=== PATIENT | female | born 1940 | race Caucasian/White ===

== ENCOUNTER 2024-05-10 08:07 | Observation (INO) | payer MEDICARE, OTHER ==
[2024-05-10] MEDS ORDERED: TRANEXAMIC 1,000 MG/100ML-NACL 1,000 MG/100 ML PIGGYBACK IV ONE (08:13)
[2024-05-10] MEDS ORDERED: TYLENOL EXTRA STRENGTH 500 MG ONE (08:14)
[2024-05-10] MEDS ORDERED: Lactated Ringers 1,000 ML IV ONE (08:14)
[2024-05-10] MEDS ORDERED: Decadron 4 MG ONE (08:14)
[2024-05-10] MEDS ORDERED: CEFAZOLIN 2 GM/100 ML NaCl 2 GM/100 ML IVPB IV ONE (08:14)
[2024-05-10] MEDS ORDERED: celeBREX 100 MG ONE (08:14)
[2024-05-10] MEDS ORDERED: NEURONTIN ONE (08:14)
[2024-05-10] MEDS ORDERED: Pepcid 20 MG VIAL IV ONE (08:14)
[2024-05-10] MEDS: Decadron 4 MG PO ONE (08:16)
[2024-05-10] MEDS: Pepcid 20 MG VIAL IV ONE (08:17)
[2024-05-10] MEDS: CEFAZOLIN 2 GM/100 ML NaCl 2 GM/100 ML IVPB IV SCH (08:17)
[2024-05-10] MEDS: NEURONTIN PO ONE (08:17)
[2024-05-10] MEDS: Lactated Ringers 1,000 ML IV SCH (08:17)
[2024-05-10] MEDS: celeBREX 100 MG PO ONE (08:17)
[2024-05-10] MEDS: TYLENOL EXTRA STRENGTH 500 MG PO ONE (08:18)
[2024-05-10] MEDS: TRANEXAMIC 1,000 MG/100ML-NACL 1,000 MG/100 ML PIGGYBACK IV ONE (08:18)
[2024-05-10 09:41] LABS: Absolute Neutrophil Ct (ANC) 4.78 x10^3/uL (1.56-6.13); BASOPHIL % 0.5 % (0.1-1.2); Basophil (Absolute #) 0.03 x10^3/uL (0.01-0.08); Eosinophil % 0.9 % (0.7-5.8); Eosinophil (Absolute #) 0.06 x10^3/uL (0.04-0.36); Hematocrit 46.3 % (34.1-44.9); Hemoglobin 15.4 g/dL (11.2-15.7); IMMATURE GRAN # 0.01 x10^3u/L (0.001-0.031); IMMATURE GRAN % 0.2 % (0.001-0.429); Lymphocyte (Absolute #) 1.05 x10^3/uL (1.18-3.74); Lymphocytes % 16.5 % (19.3-51.7); Mean Cell Volume 80.2 fL (79.4-94.8); Mean Corpuscular Hemoglobin 26.7 pg (25.6-32.2); Mean Corpuscular Hgb Concent. 33.3 g/dL (32.2-35.5); Mean Platelet Volume 9.8 fL (9.4-12.3); Monocyte (Absolute #) 0.45 x10^3/uL (0.24-0.86); Monocytes % 7.1 % (4.7-12.5); Neutrophil % 74.8 % (34.0-71.1); Platelet Count 258 x10^3/uL (182-369); Red Blood Count 5.77 x10^6/uL (3.93-5.22); Red Cell Distribution Width 14.3 % (11.7-14.4); White Blood Count 6.4 x10^3/uL (3.98-10.04)
[2024-05-10] MEDS: Zofran 4 MG/2 ML VIAL IV STA (09:54)
[2024-05-10 10:07] LABS: Slide Review 1 YES
[2024-05-10 10:38] LABS: ALBUMIN 4.7 g/dL (3.5-5.0); BILIRUBIN,TOTAL 0.5 mg/dL (0.2-1.3); Calcium 9.8 mg/dL (8.4-10.2); Creatinine 1 0.73 mg/dL (0.52-1.04); EST GLOMERULAR FILTRATION RATE 80.5 ML/MIN; Potassium 3.6 mmol/L (3.5-5.1); Total Protein 7.4 g/dL (6.3-8.2)
[2024-05-10] MEDS ORDERED: Xylocaine-Mpf 2% 5 Ml Vial ONE (10:51)
[2024-05-10] MEDS ORDERED: SUBLIMAZE 100 MCG/2 ML ONE (10:51)
[2024-05-10] MEDS ORDERED: Versed 2 MG/2 ML Injection ONE (10:52)
[2024-05-10] MEDS ORDERED: EXPAREL 133 MG/10 ML VIAL IJ ONE ×2 (10:53→10:54)
[2024-05-10] MEDS ORDERED: Marcaine Mpf 0.5% Vial 30 Ml ONE (10:55)
[2024-05-10] MEDS ORDERED: Zofran 4 MG/2 ML VIAL ONE ×2 (11:26→15:31)
[2024-05-10] MEDS ORDERED: ROCURONIUM BROMIDE IV ONE (11:26)
[2024-05-10] MEDS ORDERED: Amidate 20 MG/10 ML IV ONE (11:26)
[2024-05-10] MEDS ORDERED: BRIDION 200MG/2ML IV ONE (11:26)
[2024-05-10] MEDS ORDERED: TORAdol 30 mg Injection ONE (11:26)
[2024-05-10] MEDS ORDERED: propofoL IV ONE (11:26)
[2024-05-10] MEDS ORDERED: PHENYLEPHRINE HCL ONE (11:52)
--- NOTE | 2024-05-10 14:41 | XRAY ---
Indication: Right ankle arthroplasty. Fibular osteotomy. Lateral ankle stabilization. Intraoperative fluoroscopy provided for 3 minutes and 37 seconds. 33 digital spot images submitted for interpretation ultimately demonstrates talotibial arthroplasty with intact prosthesis and osteotomy distal shaft fibula with lateral fixation plate/transverse screws. Correlate with intraoperative findings/report.
--- NOTE | 2024-05-10 15:13 | XRAY ---
Three minutes and 37 seconds of fluoroscopy was used in surgery for a right ankle arthroplasty. Fibular osteotomy. Lateral ankle stabilization.
[2024-05-10] MEDS ORDERED: Nizoral CREAM TOP PRN (16:25)
[2024-05-10] MEDS ORDERED: NON-FORMULARY ITEM (Atogepant [Qulipta] 60 MG Tablet) PO PRN (16:25)
[2024-05-10] MEDS ORDERED: MEDICATION INTERVENTION MC SCH ×3 (16:45)
--- NOTE | 2024-05-10 16:48 | PCM.HP ---
History of Present Illness - Chief Complaint Chief Complaint: toe amputation Date: 05/10/24 History of Present Illness: is a 84 year old female with pmhx of HTN, GERD, Sleep apnea, Fibromyalgia, OA, fatty liver, and chronic obesity. She had surgery today in OR with podiatry Dr. Kelly for right ankle arthroplasty. The plan is to continue Ancef and pain control. She will then d/c to [facility] when ready. She explained she was prescribed Percocet 10mg Q6 PRN for pain and she does not feel she can take this as it will will cause her to itch and have GI upset. She does take Tramadol at home and she has no side effects with this. She is ok with incr easing the dose to 100mg Q6 PRN for pain and trying that. RLE wrapped post op. She c/o calf pain post op but unable to assess d/t it being wrapped. Will start pain meds and see if his helps. She denies any further concerns at this time. - Review of Systems Constitutional: No Fever, No Chills Eyes: No Symptoms Ears, Nose, & Throat: No Symptoms Respiratory: No Cough, No Short Of Breath Cardiac: No Chest Pain, No Edema, No Syncope Abdominal/Gastrointestinal: No Abdominal Pain, No Nausea, No Vomiting, No Diarrhea Genitourinary Symptoms: No Dysuria Musculoskeletal: No Back Pain, No Neck Pain Skin: Other (RLE wrapped, c/o right calf pain), No Rash Neurological: No Dizziness, No Focal Weakness, No Sensory Changes Psychological: No Symptoms Endocrine: No Symptoms Hematologic/Lymphatic: No Symptoms Immunological/Allergic: No Symptoms Medications & Allergies Home Medications: Home Medication List Albuterol Sulfate [Albuterol Sulfate Hfa] 108 mg IH DAILY PRN 05/10/24 [History Confirmed 05/10/24] Amlodipine Besylate 10 mg PO DAILY 05/10/24 [History Confirmed 05/10/24] Aspirin EC 325 mg [Ecotrin 325 MG] 325 mg PO DAILY 05/10/24 [History Confirmed 05/10/24] Atogepant [Qulipta] 60 mg PO DAILY PRN 05/10/24 [History Confirmed 05/10/24] Zaki Oil/Levomenthol [Fdgard Capsule] 1 each PO TID 05/10/24 [History Confirmed 05/10/24] Cetirizine HCl [All Day Allergy Relief] 10 mg PO DAILY 05/10/24 [History Confirmed 05/10/24] Cholecalciferol (Vitamin D3) [D3 Dots] 1,000 unit PO DAILY 05/10/24 [History Confirmed 05/10/24] Famotidine 20 mg PO DAILY 05/10/24 [History Confirmed 05/10/24] Fluticasone Propionate 50 mcg IH DAILY 05/10/24 [History Confirmed 05/10/24] Ketoconazole Cream [Nizoral CREAM] 1 applic TOP DAILY PRN 05/10/24 [History Confirmed 05/10/24] Losartan Potassium 100 mg PO DAILY 05/10/24 [History Confirmed 05/10/24] Magnesium 200 mg PO DAILY 05/10/24 [History Confirmed 05/10/24] Montelukast Sodium 10 mg [Singulair 10 MG] 10 mg PO DAILY 05/10/24 [History Confirmed 05/10/24] Omeprazole 40 mg PO DAILY 05/10/24 [History Confirmed 05/10/24] Phytonadione (Vit K1) [Vitamin K] 100 mcg PO DAILY 05/10/24 [History Confirmed 05/10/24] Potassium Chloride Tab* [Klor Con] 20 meq PO BID 05/10/24 [History Confirmed 05/10/24] Tramadol HCl 50 mg [Ultram 50 mg] 50 mg PO Q6H PRN 05/10/24 [History Confirmed 05/10/24] Vitamin B Complex [B Complex] 1 each PO DAILY 05/10/24 [History Confirmed 05/10/24] hydroCHLOROthiazide [Hydrochlorothiazide] 50 mg PO DAILY 05/10/24 [History Confirmed 05/10/24] Allergies/Adverse Reactions: Allergies Allergy/AdvReac Type Severity Reaction Status Date / Time latex Allergy Verified 05/10/24 08:31 codeine AdvReac Unknown Itching Verified 05/10/24 08:10 - Past Medical History Neurological History: No Pertinent History Cardiac History: Hypertension Respiratory History: Sleep Apnea Endocrine Medical History: Other Musculoskelatal History: Fibromyalgia, Osteoarthritis GI Medical History: GERD Comment: PAIN IN THE FEET, B KNEES REPLACED, L MARY, L SHOULDER REPLACED USING REVERSE TECHNIQUE. CYSTS ON HER KIDNEYS, FATTY LIVER. COVID+ IN 11/2021. - Past Surgical History Past Surgical History: Yes Neuro Surgical History: No Pertinent History Musculskeletal Surgical Hx: Joint Replacement, Orthopedic Surgery Other Surgical History: left hip reploacement and bilat knee replacement - Social History Smoking Status: Never smoker Alcohol: None - Physical Exam Vital Signs: Vital Signs - 24 hr Temp Pulse Resp BP Pulse Ox 05/10/24 16:35 94 L 05/10/24 08:32 97.8 F 91 H 18 135/73 95 05/10/24 08:24 97.8 F 91 H 18 135/73 95 General Appearance: no apparent distress, alert Neurologic Exam: alert, oriented x 3, cooperative, normal mood/affect, nml cerebellar function, nml station & gait, sensation nml, No motor deficits Eye Exam: PERRL/EOMI, eyes nml inspection Ears, Nose, Throat Exam: normal ENT inspection, TMs normal, pharynx normal, moist mucous membranes Neck Exam: normal inspection, non-tender, supple, full range of motion Respiratory Exam: normal breath sounds, lungs clear, No respiratory distress Cardiovascular Exam: regular rate/rhythm, normal heart sounds, normal peripheral pulses Gastrointestinal/Abdomen Exam: soft, normal bowel sounds, No tenderness, No mass Back Exam: normal inspection, normal range of motion, No CVA tenderness, No vertebral tenderness Extremity Exam: normal inspection, normal range of motion, pelvis stable, other (RLE wrapped) Skin Exam: normal color, warm, dry, No rash Lymphatic Exam: No adenopathy Results - Labs Lab/Micro Results: Lab Results-Last 24 Hours 05/10/24 05/10/24 Range/Units 09:38 09:38 WBC 6.4 (3.98-10.04) x10^3/uL RBC 5.77 H (3.93-5.22) x10^6/uL Hgb 15.4 (11.2-15.7) g/dL Hct 46.3 H (34.1-44.9) % MCV 80.2 (79.4-94.8) fL MCH 26.7 (25.6-32.2) pg MCHC 33.3 (32.2-35.5) g/dL RDW 14.3 (11.7-14.4) % Plt Count 258 (182-369) x10^3/uL MPV 9.8 (9.4-12.3) fL Gran % 74.8 H (34.0-71.1) % Immature Gran % (Auto) 0.2 (0.001-0.429) % Nucleat RBC Rel Count 0.0 (0.00-0.2) % Eos # (Auto) 0.06 (0.04-0.36) x10^3/uL Immature Gran # (Auto) 0.01 (0.001-0.031) x10^3u/L Absolute Lymphs (auto) 1.05 L (1.18-3.74) x10^3/uL Absolute Monos (auto) 0.45 (0.24-0.86) x10^3/uL Absolute Nucleated RBC 0.00 (0.00-0.012) x10^3u/L Lymphocytes % 16.5 L (19.3-51.7) % Monocytes % 7.1 (4.7-12.5) % Eosinophils % 0.9 (0.7-5.8) % Basophils % 0.5 (0.1-1.2) % Absolute Granulocytes 4.78 (1.56-6.13) x10^3/uL Basophils # 0.03 (0.01-0.08) x10^3/uL Sodium 139 (135-145) mmol/L Potassium 3.6 (3.5-5.1) mmol/L Chloride 99 (98-107) mmol/L Carbon Dioxide 34 H (22-30) mmol/L Anion Gap 10.0 (5-15) MEQ/L BUN 25 H (7-17) mg/dL Creatinine 0.73 (0.52-1.04) mg/dL Estimated GFR 80.5 ML/MIN Glucose 123 H (74-106) mg/dL Calcium 9.8 (8.4-10.2) mg/dL Total Bilirubin 0.50 (0.2-1.3) mg/dL AST 36 (14-36) U/L ALT 33 (0-35) U/L Alkaline Phosphatase 111 (38-126) U/L Serum Total Protein 7.4 (6.3-8.2) g/dL Albumin 4.7 (3.5-5.0) g/dL Slides for Path Review YES - Radiology Impressions Radiology Exams & Impressions: Radiology Procedures Category Date Time Status ANKLE (3 VIEWS) Routine Exams 05/10/24 06:47 Completed FLUOROSCOPY UP TO 1 HR Routine Exams 05/10/24 06:47 Completed - Other Procedures and Tests Respiratory Therapy 05/10/24 16:35 Oxygen Nasal Cannula 3 lpm Assessment/Plan (1) History of arthroplasty of right ankle Current Visit: Yes Status: Acute Assessment & Plan: - POD #1 - RLE wrapped - Dr. Kelly- podiatry - consult/ direct admit - Iv antibiotics - Oral pain control Code(s): Z96.661 - PRESENCE OF RIGHT ARTIFICIAL ANKLE JOINT (2) HTN (hypertension) Current Visit: Yes Status: Chronic Assessment & Plan: - continue home meds - monitor Code(s): I10 - ESSENTIAL (PRIMARY) HYPERTENSION (3) Obesity (BMI 30-39.9) Current Visit: Yes Status: Chronic Assessment & Plan: - advised diet and exercise control Code(s): E66.9 - OBESITY, UNSPECIFIED (4) GERD (gastroesophageal reflux disease) Current Visit: Yes Status: Chronic Assessment & Plan: - protonix Code(s): K21.9 - GASTRO-ESOPHAGEAL REFLUX DISEASE WITHOUT ESOPHAGITIS (5) Sleep apnea Current Visit: Yes Status: Chronic Qualifiers: Primary sleep apnea of type: obstructive Assessment & Plan: - Cpap at [facility]- RT set up VTE: SCD LLE PPI: Protonix [facility]: [facility] [phone] D/C plan: 1-2 days Code status:SCO Code(s): G47.30 - SLEEP APNEA, UNSPECIFIED
[2024-05-10] MEDS: VITAMIN D PO SCH (19:13)
[2024-05-10] MEDS: Protonix 40MG Tablet PO SCH (19:14)
[2024-05-10] MEDS: Ecotrin 325 MG PO SCH (19:14)
[2024-05-10] MEDS: VITA-BEE WITH C PO SCH (19:14)
[2024-05-10] MEDS: NORVASC 5 MG PO SCH (19:14)
[2024-05-10] MEDS: Cozaar 50 MG PO SCH (19:14)
[2024-05-10] MEDS: Singulair 10 MG PO SCH (19:14)
[2024-05-10] MEDS: CLARITIN 10 MG PO SCH (19:14)
[2024-05-10] MEDS: MAG-OX 400 PO SCH (19:15)
[2024-05-10] MEDS ORDERED: [UNRECOGNIZED DRUG - OTHER] PO SCH (22:00)
[2024-05-10] MEDS: Klor Con PO SCH (22:17)
[2024-05-10] MEDS: CEFAZOLIN 1 GM/100 ML NACL IVPB 1 GM/100 ML IVPB IV SCH (22:18)
[2024-05-11] MEDS: VENTOLIN COMMON CANISTER IH PRN ×2 (00:02→12:56)
[2024-05-11 05:41] LABS: Hematocrit 41.4 % (34.1-44.9); Hemoglobin 13.3 g/dL (11.2-15.7); Mean Corpuscular Hemoglobin 26.3 pg (25.6-32.2); Mean Corpuscular Hgb Concent. 32.1 g/dL (32.2-35.5); Mean Platelet Volume 9.8 fL (9.4-12.3); Platelet Count 299 x10^3/uL (182-369); Red Blood Count 5.05 x10^6/uL (3.93-5.22); Red Cell Distribution Width 14.5 % (11.7-14.4); White Blood Count 9.5 x10^3/uL (3.98-10.04)
[2024-05-11 05:55] LABS: BILIRUBIN,TOTAL 0.3 mg/dL (0.2-1.3); Calcium 9.4 mg/dL (8.4-10.2); Creatinine 1 0.77 mg/dL (0.52-1.04); EST GLOMERULAR FILTRATION RATE 75.6 ML/MIN; Potassium 3.6 mmol/L (3.5-5.1); Total Protein 6.5 g/dL (6.3-8.2)
[2024-05-11] MEDS: ULTRAM 50 MG PO PRN (06:47)
[2024-05-11] MEDS ORDERED: PHYTONADIONE 100 MCG PO SCH (10:00)
[2024-05-11] MEDS ORDERED: [UNRECOGNIZED DRUG - OTHER] PO SCH (10:00)
[2024-05-11] MEDS ORDERED: FAMOTIDINE PO SCH (10:00)
[2024-05-11] MEDS ORDERED: CA CARB PO SCH (10:00)
[2024-05-11] MEDS ORDERED: MAG HYDROX PO SCH (10:00)
[2024-05-11] MEDS ORDERED: MAGNESIUM CITRATE AND OXIDE 250 MG PO SCH (10:00)
--- NOTE | 2024-05-11 10:49 | XRAY ---
Indication: assisted placement. Comparison: None Portable chest hyperinflated with mild left infrahilar subsegmental atelectasis/scarring. Remaining heart and lungs unremarkable. Bony thorax intact with osteopenia, degenerative changes, and intact left shoulder arthroplasty.
[2024-05-11] MEDS: Flonase NASAL NS SCH (11:04)
[2024-05-11] MEDS: hydroDIURIL 25 MG PO SCH (11:05)
[2024-05-11] MEDS: Pepcid 20 MG PO SCH (11:48)
[2024-05-11] MEDS: PATIENT OWN MEDICATION PO SCH (11:52)
[2024-05-11 13:01] VITALS: RESP 18
--- NOTE | 2024-05-11 15:44 | PCM.NOTE ---
Date and Time: 05/11/24 1539 Subjective Assessment: 05/10/24 is a 84 year old female with pmhx of HTN, GERD, Sleep apnea, Fibromyalgia, OA, fatty liver, and chronic obesity. She had surgery today in OR with podiatry Dr. Kelly for right ankle arthroplasty. The plan is to continue Ancef and pain control. She will then d/c to [facility] when ready. She explained she was prescribed Percocet 10mg Q6 PRN for pain and she does not feel she can take this as it will will cause her to itch and have GI upset. She does take Tramadol at home and she has no side effects with this. She is ok with increasing the dose to 100mg Q6 PRN for pain and trying that. RLE wrapped post op. She c/o calf pain post op but unable to assess d/t it being wrapped. Will start pain meds and see if his helps. She denies any further concerns at this time. 05/11/24 Pt resting in bed. She states her stomach is upset today. She feels it may be the food she ate. Pain is well controlled. She is scheduled to d/c tomorrow morning to rehab. Podiatry sent in pain meds and antibiotics for OP. She denies any further concerns at this time. - Review of Systems Constitutional: No Fever, No Chills Eyes: No Symptoms Ears, Nose, & Throat: No Symptoms Respiratory: No Cough, No Short Of Breath Cardiac: No Chest Pain, No Edema, No Syncope Abdominal/Gastrointestinal: No Abdominal Pain, No Nausea, No Vomiting, No Diarrhea Genitourinary Symptoms: No Dysuria Musculoskeletal: Other (RLE wrapped), No Back Pain, No Neck Pain Skin: No Rash Neurological: No Dizziness, No Focal Weakness, No Sensory Changes Psychological: No Symptoms Endocrine: No Symptoms Hematologic/Lymphatic: No Symptoms Immunological/Allergic: No Symptoms Objective Exam General Appearance: no apparent distress, alert, obese Neurologic Exam: alert, oriented x 3, cooperative, normal mood/affect, nml cerebellar function, sensation nml, No motor deficits Skin Exam: normal color, warm, dry Eye Exam: PERRL, EOMI, eyes nml inspection Ears, Nose, Throat Exam: normal ENT inspection, pharynx normal, moist mucous membranes Neck Exam: normal inspection, non-tender, supple, full range of motion Respiratory Exam: normal breath sounds, lungs clear, No respiratory distress Cardiovascular Exam: regular rate/rhythm, normal heart sounds Gastrointestinal/Abdomen Exam: soft, No tenderness, No mass Extremity Exam: normal inspection, normal range of motion, limited range of motion (RLE), other (RLE wrapped) Back Exam: normal inspection, normal range of motion, No CVA tenderness, No vertebral tenderness Pelvic Exam: deferred Rectal Exam: deferred Objective Data Vital Signs: Vital Signs - 24 hr Temp Pulse Resp BP Pulse Ox 05/11/24 13:00 101 H 18 94 L 05/11/24 11:40 98.3 F 89 20 138/63 94 L 05/11/24 07:40 98.1 F 91 H 20 124/57 93 L 05/11/24 05:32 85 16 92 L 05/11/24 04:00 97.4 F 92 H 18 116/56 93 L 05/11/24 00:02 94 H 16 96 05/11/24 00:00 97.2 F 100 H 20 121/58 95 05/10/24 20:00 98.1 F 94 H 20 123/58 94 L 05/10/24 18:53 92 H 18 94 L 05/10/24 17:45 92 H 17 125/67 98 05/10/24 17:15 91 H 18 128/74 97 05/10/24 16:45 83 18 134/75 96 05/10/24 16:35 94 L 05/10/24 16:30 56 L 18 119/61 96 05/10/24 16:20 97.7 F 92 H 21 128/74 93 L 05/10/24 16:15 73 20 165/71 96 05/10/24 16:00 113 H 20 183/83 95 Pain Assessment - Last Documented Pain Intensity [Right] 4 Pain Intensity 0 Pain Scale Used 0-10 Pain Scale Intake and Output: Intake & Output 05/09/24 05/10/24 05/11/24 05/12/24 11:59 11:59 11:59 11:59 Intake Total 786 Output Total 350 Balance 436 Weight 86.1 kg 88.1 kg Lab Results: Lab Results-Last 24 Hours 05/11/24 05/11/24 Range/Units 04:42 04:42 WBC 9.5 (3.98-10.04) x10^3/uL RBC 5.05 (3.93-5.22) x10^6/uL Hgb 13.3 (11.2-15.7) g/dL Hct 41.4 (34.1-44.9) % MCV 82.0 (79.4-94.8) fL MCH 26.3 (25.6-32.2) pg MCHC 32.1 L (32.2-35.5) g/dL RDW 14.5 H (11.7-14.4) % Plt Count 299 (182-369) x10^3/uL MPV 9.8 (9.4-12.3) fL Sodium 139 (135-145) mmol/L Potassium 3.6 (3.5-5.1) mmol/L Chloride 101 (98-107) mmol/L Carbon Dioxide 32 H (22-30) mmol/L Anion Gap 9.0 (5-15) MEQ/L BUN 21 H (7-17) mg/dL Creatinine 0.77 (0.52-1.04) mg/dL Estimated GFR 75.6 ML/MIN Glucose 115 H (74-106) mg/dL Calcium 9.4 (8.4-10.2) mg/dL Total Bilirubin 0.30 (0.2-1.3) mg/dL AST 31 (14-36) U/L ALT 29 (0-35) U/L Alkaline Phosphatase 86 (38-126) U/L Serum Total Protein 6.5 (6.3-8.2) g/dL Albumin 4.0 (3.5-5.0) g/dL Radiology Exams: Radiology Procedures Category Date Time Status ANKLE (3 VIEWS) Routine Exams 05/10/24 06:47 Completed CHEST 1 VIEW (PORTABLE) Urgent Exams 05/11/24 10:10 Completed FLUOROSCOPY UP TO 1 HR Routine Exams 05/10/24 06:47 Completed Assessment/Plan (1) History of arthroplasty of right ankle Current Visit: Yes Status: Acute Code(s): Z96.661 - PRESENCE OF RIGHT ARTIFICIAL ANKLE JOINT (2) HTN (hypertension) Current Visit: Yes Status: Chronic Code(s): I10 - ESSENTIAL (PRIMARY) HYPERTENSION (3) Obesity (BMI 30-39.9) Current Visit: Yes Status: Chronic Code(s): E66.9 - OBESITY, UNSPECIFIED (4) GERD (gastroesophageal reflux disease) Current Visit: Yes Status: Chronic Code(s): K21.9 - GASTRO-ESOPHAGEAL REFLUX DISEASE WITHOUT ESOPHAGITIS (5) Sleep apnea Current Visit: Yes Status: Chronic Qualifiers: Primary sleep apnea of type: obstructive Assessment & Plan: 1) History of arthroplasty of right ankle Current Visit: Yes Status: Acute Assessment & Plan: - POD #1 - RLE wrapped - Dr. Kelly- podiatry - consult/ direct admit - Iv antibiotics - Oral pain control 05/11 - POD #2 - pain well controlled - + Nausea - PRN antiemetic Code(s): Z96.661 - PRESENCE OF RIGHT ARTIFICIAL ANKLE JOINT (2) HTN (hypertension) Current Visit: Yes Status: Chronic Assessment & Plan: - continue home meds - monitor Code(s): I10 - ESSENTIAL (PRIMARY) HYPERTENSION (3) Obesity (BMI 30-39.9) Current Visit: Yes Status: Chronic Assessment & Plan: - advised diet and exercise control Code(s): E66.9 - OBESITY, UNSPECIFIED (4) GERD (gastroesophageal reflux disease) Current Visit: Yes Status: Chronic Assessment & Plan: - protonix Code(s): K21.9 - GASTRO-ESOPHAGEAL REFLUX DISEASE WITHOUT ESOPHAGITIS (5) Sleep apnea Current Visit: Yes Status: Chronic Qualifiers: Primary sleep apnea of type: obstructive Assessment & Plan: - Cpap at [facility]- RT set up VTE: SCD LLE PPI: Protonix [facility]: [facility] [phone] D/C plan: tomorrow Code status:SCO Code(s): G47.30 - SLEEP APNEA, UNSPECIFIED Code(s): G47.30 - SLEEP APNEA, UNSPECIFIED
--- NOTE | 2024-05-11 15:48 | PCM.CONS ---
Podiatry HPI - Consult Consulting Provider: URVASHI FRANCO DPM - HPI History of Present Illness: POD #1 s/p TAR and fibular osteotomy. doing well. no pain. awaiting d/c Medications & Allergies Home Medications: Home Medication List Albuterol Sulfate [Albuterol Sulfate Hfa] 108 mg IH DAILY PRN 05/10/24 [History Confirmed 05/10/24] Amlodipine Besylate 10 mg PO DAILY 05/10/24 [History Confirmed 05/10/24] Amoxicillin/Potassium Clav [Amox-Clav 875-125 mg Tablet] 1 tab PO BID 05/10/24 [History Confirmed 05/10/24] Aspirin EC 325 mg [Ecotrin 325 MG] 2 tab PO BID 05/10/24 [History Confirmed 05/10/24] Zaki Oil/Levomenthol [Fdgard Capsule] 1 each PO TID 05/10/24 [History Confirmed 05/10/24] Docusate Sodium [Jorgensen' Laxative] 2 - 4 cap PO UD 05/10/24 [History Confirmed 05/10/24] Famotidine 20 mg PO DAILY 05/10/24 [History Confirmed 05/10/24] Famotidine/Ca Carb/Mag Hydrox [Pepcid Complete Tablet Chew] 1 each PO DAILY 05/10/24 [History Confirmed 05/10/24] Fluticasone Propionate 1 spray IH DAILY 05/10/24 [History Confirmed 05/10/24] Ketoconazole Cream [Nizoral CREAM] 1 applic TOP DAILY PRN 05/10/24 [History Confirmed 05/10/24] Losartan Potassium 100 mg PO DAILY 05/10/24 [History Confirmed 05/10/24] Magnesium Citrate and Oxide [Magnesium] 250 mg PO DAILY 05/10/24 [History Confirmed 05/10/24] Montelukast Sodium 10 mg [Singulair 10 MG] 10 mg PO QHS 05/10/24 [History Confirmed 05/10/24] Omeprazole 40 mg PO DAILY 05/10/24 [History Confirmed 05/10/24] Oxycodone / APAP 10/325 mg [Oxycodone-Acetaminophen 10-325] 1 tab PO Q6HPRN PRN 05/10/24 [History Confirmed 05/10/24] Potassium Chloride Tab* [Klor Con] 20 meq PO DAILY 05/10/24 [History Confirmed 05/10/24] Tramadol HCl 50 mg [Ultram 50 mg] 50 mg PO Q6H PRN 05/10/24 [History Confirmed 05/10/24] Vitamin B Complex [B Complex] 1 each PO DAILY 05/10/24 [History Confirmed 05/10/24] hydroCHLOROthiazide [Hydrochlorothiazide] 50 mg PO DAILY 05/10/24 [History Confirmed 05/10/24] Allergies/Adverse Reactions: Allergies Allergy/AdvReac Type Severity Reaction Status Date / Time latex Allergy Verified 05/10/24 08:31 codeine AdvReac Unknown Itching Verified 05/10/24 08:10 - Past Medical History Past Medical History: Yes Neurological History: No Pertinent History ENT History: No Pertinent History Cardiac History: Hypertension Respiratory History: Sleep Apnea Endocrine Medical History: Other Musculoskelatal History: Fibromyalgia, Osteoarthritis GI Medical History: GERD History: No Pertinent History Pyscho-Social History: No Pertinent History Reproductive Disorders: No Pertinent History Comment: PAIN IN THE FEET, B KNEES REPLACED, L MARY, L SHOULDER REPLACED USING REVERSE TECHNIQUE. CYSTS ON HER KIDNEYS, FATTY LIVER. COVID+ IN 11/2021. - Past Surgical History Past Surgical History: Yes Neuro Surgical History: No Pertinent History Cardiac History: No Pertinent History Respiratory Surgery: No Pertinent History GI Surgical History: No Pertinent History Genitourinary Surgical Hx: No Pertinent History Musculskeletal Surgical Hx: Joint Replacement, Orthopedic Surgery Female Surgical History: No Pertinent History Other Surgical History: left hip reploacement and bilat knee replacement - Social History Smoking Status: Never smoker Alcohol: None Drug Use: none - Social Determinants of Health Will the patient participate in the screening: Yes Do you worry about a steady place to live?: No Do you have any problems with any of the following?: No known problems In the past 12 months,have you had to go without utilities?: No Have you or anyone in your house had to go without enough: No Transportation Issues: No Has anyone in your support network made you feel unsafe?: No Does the patient want assistance with any of the above?: No Physical Exam - Narrative Narrative Physical Exam: Podiatry Physical Exam Results - Labs Lab/Micro Results: Lab Results-Last 24 Hours 05/11/24 05/11/24 Range/Units 04:42 04:42 WBC 9.5 (3.98-10.04) x10^3/uL RBC 5.05 (3.93-5.22) x10^6/uL Hgb 13.3 (11.2-15.7) g/dL Hct 41.4 (34.1-44.9) % MCV 82.0 (79.4-94.8) fL MCH 26.3 (25.6-32.2) pg MCHC 32.1 L (32.2-35.5) g/dL RDW 14.5 H (11.7-14.4) % Plt Count 299 (182-369) x10^3/uL MPV 9.8 (9.4-12.3) fL Sodium 139 (135-145) mmol/L Potassium 3.6 (3.5-5.1) mmol/L Chloride 101 (98-107) mmol/L Carbon Dioxide 32 H (22-30) mmol/L Anion Gap 9.0 (5-15) MEQ/L BUN 21 H (7-17) mg/dL Creatinine 0.77 (0.52-1.04) mg/dL Estimated GFR 75.6 ML/MIN Glucose 115 H (74-106) mg/dL Calcium 9.4 (8.4-10.2) mg/dL Total Bilirubin 0.30 (0.2-1.3) mg/dL AST 31 (14-36) U/L ALT 29 (0-35) U/L Alkaline Phosphatase 86 (38-126) U/L Serum Total Protein 6.5 (6.3-8.2) g/dL Albumin 4.0 (3.5-5.0) g/dL - Radiology Impressions Radiology Exams & Impressions: Radiology Procedures Category Date Time Status ANKLE (3 VIEWS) Routine Exams 05/10/24 06:47 Completed CHEST 1 VIEW (PORTABLE) Urgent Exams 05/11/24 10:10 Completed FLUOROSCOPY UP TO 1 HR Routine Exams 05/10/24 06:47 Completed - Other Procedures and Tests Respiratory Therapy 05/10/24 16:35 Oxygen Nasal Cannula 3 lpm 05/10/24 17:27 BiPap/CPAP ROUTINE 05/11/24 07:00 Respiratory Therapy Assessment DAILY Assessment/Plan (1) History of arthroplasty of right ankle Current Visit: Yes Status: Acute Assessment & Plan: POD #1 doing well with no indications of complications at this time. OK for d/c when medical criteria met and accepted at [facility]. Code(s): Z96.661 - PRESENCE OF RIGHT ARTIFICIAL ANKLE JOINT (2) HTN (hypertension) Current Visit: Yes Status: Chronic Code(s): I10 - ESSENTIAL (PRIMARY) HYPERTENSION (3) Obesity (BMI 30-39.9) Current Visit: Yes Status: Chronic Code(s): E66.9 - OBESITY, UNSPECIFIED (4) GERD (gastroesophageal reflux disease) Current Visit: Yes Status: Chronic Code(s): K21.9 - GASTRO-ESOPHAGEAL REFLUX DISEASE WITHOUT ESOPHAGITIS (5) Sleep apnea Current Visit: Yes Status: Chronic Qualifiers: Primary sleep apnea of type: obstructive Code(s): G47.30 - SLEEP APNEA, UNSPECIFIED
[2024-05-11] MEDS: NORVASC 5 MG PO SCH (21:32)
[2024-05-12 05:02] LABS: Hematocrit 40.8 % (34.1-44.9); Hemoglobin 12.8 g/dL (11.2-15.7); Mean Cell Volume 83.4 fL (79.4-94.8); Mean Corpuscular Hemoglobin 26.2 pg (25.6-32.2); Mean Corpuscular Hgb Concent. 31.4 g/dL (32.2-35.5); Mean Platelet Volume 9.4 fL (9.4-12.3); Platelet Count 255 x10^3/uL (182-369); Red Blood Count 4.89 x10^6/uL (3.93-5.22); Red Cell Distribution Width 14.6 % (11.7-14.4); White Blood Count 6.4 x10^3/uL (3.98-10.04)
[2024-05-12 05:20] LABS: ALBUMIN 3.9 g/dL (3.5-5.0); ANION GAP 8.7 MEQ/L (5-15); BILIRUBIN,TOTAL 0.6 mg/dL (0.2-1.3); Creatinine 1 0.57 mg/dL (0.52-1.04); Potassium 4.1 mmol/L (3.5-5.1); Total Protein 6.2 g/dL (6.3-8.2)
[2024-05-12 07:42] VITALS: BP 123/60; TEMP 97.9
[2024-05-12 07:46] VITALS: PULSE 82; O2SAT 92
--- NOTE | 2024-05-12 08:31 | PCM.DS ---
Discharge Summary Date of Admission: 05/10/24 15:55 Date of Discharge: 05/12/24 Admitting Physician: MICHELLE LOPEZ MD Consults: Consults on Case 05/10/24 17:25 Consult Podiatry ROUTINE Primary Care Provider: NENITA MCDUFFIE Allergies Allergies latex Allergy (Verified 05/10/24 08:31) codeine Adverse Reaction (Unknown, Verified 05/10/24 08:10) Itching and nausea Hospital Summary - Hospital Course Hospital Course: 05/10/24 is a 84 year old female with pmhx of HTN, GERD, Sleep apnea, Fibromyalgia, OA, fatty liver, and chronic obesity. She had surgery today in OR with podiatry Dr. Kelly for right ankle arthroplasty. The plan is to continue Ancef and pain control. She will then d/c to [facility] when ready. She explained she was prescribed Percocet 10mg Q6 PRN for pain and she does not feel she can take this as it will will cause her to itch and have GI upset. She does take Tramadol at home and she has no side effects with this. She is ok with increasing the dose to 100mg Q6 PRN for pain and trying that. RLE wrapped post op. She c/o calf pain post op but unable to assess d/t it being wrapped. Will start pain meds and see if his helps. She denies any further concerns at this time. 05/11/24 Pt resting in bed. She states her stomach is upset today. She feels it may be the food she ate. Pain is well controlled. She is scheduled to d/c tomorrow morning to rehab. Podiatry sent in pain meds and antibiotics for OP. She denies any further concerns at this time. 05/12/24 Pt resting in bed. She is scheduled to leave to [facility] today. They are coming to get her at 10:00 AM. Labs and vitals overall ok. Pain well controlled. Podiatry note read and agree with plan of care OP meds sent in by podiatry. She denies any further concerns at this time. - Vitals & Intake/Output Vital Signs: Vital Signs Temperature 97.9 F 05/12/24 07:41 Pulse Rate 82 05/12/24 07:43 Respiratory Rate 18 05/12/24 07:43 Blood Pressure 123/60 05/12/24 07:41 O2 Sat by Pulse Oximetry 92 L 05/12/24 07:43 Intake & Output: Intake & Output 05/09/24 05/10/24 05/11/24 05/12/24 11:59 11:59 11:59 11:59 Intake Total 786 470 Output Total 350 2600 Balance 436 -2130 Weight 86.1 kg 88.1 kg - Lab Result Diagrams: 05/12/24 05:00 05/12/24 05:00 Lab Results-Last 24 Hrs: Lab Results-Last 24 Hours 05/12/24 05/12/24 Range/Units 05:00 05:00 WBC 6.4 (3.98-10.04) x10^3/uL RBC 4.89 (3.93-5.22) x10^6/uL Hgb 12.8 (11.2-15.7) g/dL Hct 40.8 (34.1-44.9) % MCV 83.4 (79.4-94.8) fL MCH 26.2 (25.6-32.2) pg MCHC 31.4 L (32.2-35.5) g/dL RDW 14.6 H (11.7-14.4) % Plt Count 255 (182-369) x10^3/uL MPV 9.4 (9.4-12.3) fL Sodium 138 (135-145) mmol/L Potassium 4.1 (3.5-5.1) mmol/L Chloride 100 (98-107) mmol/L Carbon Dioxide 33 H (22-30) mmol/L Anion Gap 8.7 (5-15) MEQ/L BUN 20 H (7-17) mg/dL Creatinine 0.57 (0.52-1.04) mg/dL Estimated GFR 89.0 ML/MIN Glucose 101 (74-106) mg/dL Calcium 9.0 (8.4-10.2) mg/dL Total Bilirubin 0.60 (0.2-1.3) mg/dL AST 29 (14-36) U/L ALT 23 (0-35) U/L Alkaline Phosphatase 88 (38-126) U/L Serum Total Protein 6.2 L (6.3-8.2) g/dL Albumin 3.9 (3.5-5.0) g/dL - Radiology Exams Ordered Rad Exams-Entire Visit: Radiology Procedures Category Date Time Status CHEST 1 VIEW (PORTABLE) Urgent Exams 05/11/24 10:10 Completed - Procedures and Test Procedures and Tests throughout Hospitalization: Therapy Orders & Screens 05/10/24 08:15 EKG STAT Comment: 05/10/24 16:35 Oxygen Nasal Cannula 3 lpm Comment: 05/10/24 17:15 RT Miscellaneous Order ROUTINE Comment: Physician Instructions: Reason For Exam: CPAP at [facility]- pt may use own Diagnosis: toe amputation 05/10/24 17:27 BiPap/CPAP ROUTINE Comment: Diagnosis: toe amputation 05/11/24 07:00 Respiratory Therapy Assessment DAILY Comment: Discharge Exam General Appearance: no apparent distress, alert Neurologic Exam: alert, oriented x 3, cooperative, normal mood/affect, nml cerebellar function, sensation nml, No motor deficits Eye Exam: PERRL, EOMI, eyes nml inspection Ears, Nose, Throat Exam: normal ENT inspection, pharynx normal, moist mucous membranes Neck Exam: normal inspection, non-tender, supple, full range of motion Respiratory Exam: normal breath sounds, lungs clear, No respiratory distress Cardiovascular Exam: regular rate/rhythm, normal heart sounds Gastrointestinal/Abdomen Exam: soft, No tenderness, No mass Pelvic Exam: deferred Rectal Exam: deferred Back Exam: normal inspection, normal range of motion, No CVA tenderness, No vertebral tenderness Extremity Exam: normal inspection, normal range of motion, tenderness, other (RLE Wrapped post op surgery) Skin Exam: normal color, warm, dry Final Diagnosis/Problem List - Final Discharge Diagnosis/Problem (1) History of arthroplasty of right ankle Current Visit: Yes Status: Acute Code(s): Z96.661 - PRESENCE OF RIGHT ARTIFICIAL ANKLE JOINT (2) HTN (hypertension) Current Visit: Yes Status: Chronic Code(s): I10 - ESSENTIAL (PRIMARY) HYPERTENSION (3) Obesity (BMI 30-39.9) Current Visit: Yes Status: Chronic Code(s): E66.9 - OBESITY, UNSPECIFIED (4) GERD (gastroesophageal reflux disease) Current Visit: Yes Status: Chronic Code(s): K21.9 - GASTRO-ESOPHAGEAL REFLUX DISEASE WITHOUT ESOPHAGITIS (5) Sleep apnea Current Visit: Yes Status: Chronic Assessment & Plan: 1) History of arthroplasty of right ankle Current Visit: Yes Status: Acute Assessment & Plan: - POD #1 - RLE wrapped - Dr. Kelly- podiatry - consult/ direct admit - Iv antibiotics - Oral pain control 05/11 - POD #2 - pain well controlled - + Nausea - PRN antiemetic 05/12 - POD #3 - CBC, CMP reviewed - reviewed podiatry note and agree with plan of care Code(s): Z96.661 - PRESENCE OF RIGHT ARTIFICIAL ANKLE JOINT (2) HTN (hypertension) Current Visit: Yes Status: Chronic Assessment & Plan: - continue home meds - monitor Code(s): I10 - ESSENTIAL (PRIMARY) HYPERTENSION (3) Obesity (BMI 30-39.9) Current Visit: Yes Status: Chronic Assessment & Plan: - advised diet and exercise control Code(s): E66.9 - OBESITY, UNSPECIFIED (4) GERD (gastroesophageal reflux disease) Current Visit: Yes Status: Chronic Assessment & Plan: - protonix Code(s): K21.9 - GASTRO-ESOPHAGEAL REFLUX DISEASE WITHOUT ESOPHAGITIS (5) Sleep apnea Current Visit: Yes Status: Chronic Qualifiers: Primary sleep apnea of type: obstructive Assessment & Plan: - Cpap at [facility]- RT set up Code(s): G47.30 - SLEEP APNEA, UNSPECIFIED - Discharge Discharge Date: 05/12/24 ([facility]) Disposition: DC TO ANY "OTHER" [facility] Condition: Stable Prescriptions: Continue Tramadol HCl 50 mg [Ultram 50 mg] 50 mg PO Q6H PRN PRN Reason: Pain Potassium Chloride Tab* [Klor Con] 20 meq PO DAILY Omeprazole 40 mg PO DAILY Montelukast Sodium 10 mg [Singulair 10 MG] 10 mg PO QHS hydroCHLOROthiazide [Hydrochlorothiazide] 50 mg PO DAILY Losartan Potassium 100 mg PO DAILY Zaki Oil/Levomenthol [Fdgard Capsule] 1 each PO TID Vitamin B Complex [B Complex] 1 each PO DAILY Amlodipine Besylate 10 mg PO DAILY Fluticasone Propionate 1 spray IH DAILY Famotidine 20 mg PO DAILY Aspirin EC 325 mg [Ecotrin 325 MG] 2 tab PO BID Albuterol Sulfate [Albuterol Sulfate Hfa] 108 mg IH DAILY PRN PRN Reason: breathing Ketoconazole Cream [Nizoral CREAM] 1 applic TOP DAILY PRN PRN Reason: antifungal Oxycodone / APAP 10/325 mg [Oxycodone-Acetaminophen 10-325] 1 tab PO Q6HPRN PRN PRN Reason: Pain Docusate Sodium [Jorgensen' Laxative] 2 - 4 cap PO UD Famotidine/Ca Carb/Mag Hydrox [Pepcid Complete Tablet Chew] 1 each PO DAILY Magnesium Citrate and Oxide [Magnesium] 250 mg PO DAILY Amoxicillin/Potassium Clav [Amox-Clav 875-125 mg Tablet] 1 tab PO BID Additional Instructions: [facility] ORDERS: ADMIT TO SNF FACILITY REGULAR DIET CPAP PER HOME USE SEE RX FOR AUGMENTIN CONTINUE HOME DOSE OF ASPIRIN FOR DVT PROPHYLAXIS DO NOT TOUCH OR ALTER DRESSING, LEAVE CLEAN DRY AND INTACT PATIENT TO WORK WITH PT/OT BUT KEEP NON WTBEARING STATUS ON OPERATIVE ANKLE FOLLOW UP SCHEDULED SEE ATTACHED MED LIST Follow up with: URVASHI FRANCO DPM [Family Provider] - 05/18/24 11:00 am NENITA MCDUFFIE DO [Primary Care Provider] - Office will call patient
--- NOTE | 2024-05-12 12:30 | OP ---
SURGERY DATE/TIME: 05/10/2024 [id number] PREOPERATIVE DIAGNOSES: 1) Fibular deformity. 2) Osteoarthritis of the tibiotalar joint, right ankle. 3) Lateral ankle instability. POSTOPERATIVE DIAGNOSES: 1) Fibular deformity. 2) Osteoarthritis of the tibiotalar joint, right ankle. 3) Lateral ankle instability. PROCEDURE: 1) Fibular osteotomy, right ankle. 2) Total ankle replacement with [employer] trabecular metal implant and lateral ankle stabilization of right ankle. SURGEON: Robin Gold DPM LEGAL RESEARCH ANALYST: Tony Lindsay NP ANESTHESIA: General plus a preoperative popliteal and saphenous block. See anesthesia report for details. HEMOSTASIS: A thigh tourniquet set to 320 mmHg for a total of 120 total tourniquet minutes. ESTIMATED BLOOD LOSS: Approximately 20 mL. MATERIALS: A Neli TM ankle with a 1 size talus and a 1 size tibia with a 2+ poly, 6-hole right fibular anatomic plate, combination of locking and nonlocking screws, 2-0 Vicryl, 4-0 Monocryl, and 3-0 nylon. INDICATIONS: Patient is a very pleasant 84-year-old female who is well known to our service for ankle pain. Patient has progressed with bracing and injections in the past. However, has not had significant relief and patient is held back by this. Patient is 84 years old; however, is able to ambulate without an assistive device. However, she does choose to have an assistive device associated with the osteoarthritis of her ankle. However, at this time, she would like to proceed with surgical intervention for this issue. Patient has been made aware of all risks, complications and benefits of surgical intervention at this time including, but not limited to infection, hematoma, seroma, possibility of delayed wound healing, non-wound healing and possible need for further surgical intervention at a later date. No guarantees have been provided as to the outcome of surgical intervention. Plenty of time was left for the patient to ask questions, which were answered to her apparent satisfaction. It is at this time we decided to proceed. DESCRIPTION OF PROCEDURE AND FINDINGS: Patient was brought into the PACU prior to the procedure and provided a popliteal and saphenous block. Once the patient was provided the block and it had adequate time to take effect, patient was brought into the operating room, placed on the operating room table in the supine position. General anesthesia was administered until the patient was adequately sedated. A well-padded thigh tourniquet was applied to the patient's right thigh and set to 320 mmHg. The right lower extremity was prepped and draped in the typical sterile fashion and lowered onto the surgical field. At this time, attention was directed to the lateral aspect of the right ankle. Under direct fluoroscopic guidance, a linear incision was made with a J stroke at the distal extent for exposure. This was carried down to the level of bone being careful not to damage any neurovascular structures along the way. As the fibula was exposed, soft tissue dissection was carried around the fibula sparing the calcaneal fibula ligament and the posterior talofibular ligament. The ATFL was resected. A fibular osteotomy was carried out approximately 1 to 1.5 cm above the joint line exposing the syndesmosis, which utilizing an osteotome was resected and reflected down. A 1.2 K-wire was then introduced into the fibula and anchored into the lateral wall of the calcaneus. At this time, access to the joint space. At this time, once the fibula was pinned to the lateral wall of the calcaneus, the frame was introduced. Once the frame was introduced, position was assessed, making sure that the lateral spine of the tibial plateau was in line with the mechanical access of the proposed position of the implant. Once position was assessed and deemed to be in an adequate position, the talar neck pin was placed and then 2 tibial pins were placed. Position was then once again assessed and deemed to be adequate. The jig was placed and the drill was utilized to resect first the talar position, then the tibia 1 position, and then tibia 2 position. Once this was performed, significant deficit where the implant was anticipated to take place was exposed with no impingement points. Once this was performed, copious amounts of sterile saline were utilized to flush out any remaining bone fragments. The rail guides were then placed and checked for position. Once the position was deemed to be adequate, they were pinned and then the rail guides were then drilled. Once the rail guides were drilled, the trials were placed and position was assessed. At this time, we decided on a tibia and talus 1 size with a number 2 poly. Following this, the implants were then inserted and then, as FDA recommendation, these were cemented into place. Position was assessed. Deltoid was stressed and was in an adequate amount of competency. From that standpoint, the implant was finalized in this position and the fibular osteotomy was then reflected back to its footprint. A 6-hole anatomic right fibular plate was then introduced, first fixating the distal aspect of the plate utilizing a combination of locking and nonlocking screws. Once this was performed, the eccentric feature on the dynamic compression plate was utilized to gain compression through the fracture site and the fracture site was repaired. Final views were taken. There was some demonstrated ATFL laxity which is chronic in nature, and decision was made to repair the anterior talofibular ligament utilizing 2-0 Vicryl. Following this, after the lateral ankle stabilization, copious amounts of sterile saline were utilized to flush the surgical site. Then, 4-0 Monocryl was utilized to coapt the subcutaneous skin edges and then 3-0 nylon was utilized in a horizontal mattress-type fashion to coapt the skin edges. A dressing consisting of Betadine, Adaptic, 4 x 4, Kerlix, ABD, and a well-padded posterior splint with sugar tong was applied to the patient's right lower extremity with the foot orthogonal relative to the longitudinal axis of the leg. Patient was then reversed from anesthesia and returned to the postoperative anesthesia care unit with vital signs stable and vascular status intact. Patient handled the anesthesia as well as the procedure without significant complication. Postoperative orders as indicated in the patient's discharge chart.
== END 2024-05-12 10:27 ==
LOC: SDC 08:07 → MED SURG 15:55
PROVIDERS: ADMIT Internal Medicine; ATTEND Internal Medicine
DX: M19.071 Primary osteoarthritis, right ankle and foot (principal); M21.961 Unspecified acquired deformity of right lower leg; M25.371 Other instability, right ankle; I10 Essential (primary) hypertension; K21.9 Gastro-esophageal reflux disease without esophagitis; E66.9 Obesity, unspecified; R60.0 Localized edema; G47.30 Sleep apnea, unspecified; R10.9 Unspecified abdominal pain; Z79.899 Other long term (current) drug therapy
CPT/HCPCS: 27702; 27707; 36415; 71045; 73610; 76000; 76937; 80053; 85025; 85027; 93005; 94640; 94760; 99024; A6260; C1713; C1776; G0378; J0666; J0690; J1885; J2250; J2371; J2405; J2704; J3010; A9270-GY